=== PATIENT | male | born 1960 | race Caucasian/White ===

== ENCOUNTER 2023-02-27 08:07 | Emergency (ER) | payer OTHER ==
[2023-02-27 08:14] VITALS: BP 136/77; PULSE 16; TEMP 98.3; BMI 24.1
[2023-02-27 08:54] VITALS: RESP 68
[2023-02-27 09:27] LABS: URINE APPEARANCE CLEAR; URINE BILIRUBIN NEGATIVE (NEGATIVE); URINE COLOR YELLOW; URINE GLUCOSE (UA) NEGATIVE (NEGATIVE); URINE KETONE NEGATIVE (NEGATIVE); URINE LEUK ESTERASE NEGATIVE (NEGATIVE); URINE NITRITE NEGATIVE (NEGATIVE); URINE PROTEIN NEGATIVE (NEGATIVE); URINE UROBILINOGEN 0.2 mg/dL (0.2-1.0)
== END 2023-02-27 11:05 | disposition home or self-care (01) ==
LOC: JER 08:07
DX: R10.32 Left lower quadrant pain (principal); N40.1 Benign prostatic hyperplasia with lower urinary tract symptoms; R35.0 Frequency of micturition
CPT/HCPCS: 74019-TC-FY; 81003; 87086; 99284-25